=== PATIENT | female | born 1980 | race African-American/Black ===

== ENCOUNTER 2017-01-22 12:40 | Emergency (ER) | payer MEDICAID, OTHER ==
[~2017-01-22 12:40] MED LIST: PREN0.01
[2017-01-22] MEDS ORDERED: ACETAMINOPHEN 325 MG TAB PO ONE (14:15)
[2017-01-22 14:21] LABS: BACTERIA, URINE RARE /hpf; BLOOD, URINE SMALL (NEG); GLUCOSE,URINE NEG (NEG); KETONE, URINE NEG (NEG); MUCUS URINE FEW /lpf (OCC); NITRITE,URINE NEG (NEG); PH, URINE 6.5 (5.0-8.5); SQUAMOUS EPITHELIAL CELL URINE 8 /hpf (0-5); URINE COLOR YELLOW (YELLW/STRAW)
[2017-01-22 14:25] LABS: COMMENT (UR) CULT NOT INDICATED; CULTURE IF INDICATED CULT NOT INDICATED
--- NOTE | 2017-01-22 14:27 | PD ---
HPI Chief Complaint abdominal pain, dizziness Date Seen: Jan 22, 2017 Time Seen: 14:08 (Kate Benjamin MD R1) Travel History International Travel<30 Days: No Contact w/Intl Traveler<30Days: No Known Affected Area: No (Kate Benjamin MD R1) History of Present Illness HPI Patient is a 37-year-old at 33 and 0/7 weeks, EDC 03/12/17 based on definitive LMP of 06/05/16 (confirmed by first trimester ultrasound) who presents to the OB ED with abdominal pain and dizziness since this morning. She says that she had a "nervous feeling" shortly upon standing this morning and lower abdominal pain bilaterally which has been constant since. No gush of fluid, vaginal bleeding, obvious contractions, or decreased movement. She does endorse a transient headache this morning with blurry vision. She denies chest pain or shortness of breath. On review of systems she notes no dysuria but has had increased urinary frequency with decreased output. Denies vaginal discharge , last sexual activity 2 weeks ago. Patient receives OB care from Dr. Annette Barrera the [facility]. LMP 01/16. She has not had any, patient's , however, patient is AMA and has been followed by MFM. She has a large uterine fibroid 10.4 cm on US 10/2016. She was supposed to follow up with MFM but lost her insurance; repeat ultrasound in 4 weeks was indicated at that time. Patient had bedside ultrasound on 01/15/17 showing cephalic presentation and anterior placenta. Additional history, patient does state she has had increased caffeine intake and some constipation symptoms over the last few days. She did have an episode of vomiting on Saturday, not repeated since. She notes some anxiety type symptoms in the past, especially in previous , but does not have a formal diagnosis of anxiety or other mood disorder. (Kate Benjamin MD R1) History Past Medical History Narrative Medical Uterine fibroid (Kate Benjamin MD R1) Obstetric History Obstetric History (one miscarriage, one ) 2 term deliveries History of hemorrhage following vaginal delivery Official ultrasound on 10/09/16 with MFM due to AMA and APA (FOB 60 years old): Showed single fetus with breech presentation, low-lying placenta 30 mm from os, cardiogenic focus in RV, large anterior right lateral fibroid measuring 9.67.6 10.47cm. Patient has had issues with insurance this and did not follow-up with M after visit in October Bedside ultrasound showing cephalic and anterior placenta labs within normal limits, no sickle cell disease No history of high blood pressure this or prior to (Kate Benjamin MD R1) Past Surgical History Surgical History: No Previous Surgery (Kate Benjamin MD R1) Family History Family History: Negative (Kate Benjamin MD R1) Social History Alcohol Use: No Tobacco Use: No Substance Abuse: No (Kate Benjamin MD R1) Allergies-Medications (Allergen,Severity, Reaction): Coded Allergies: No Known Allergies (Unverified , 01/15/17) Home Meds Reported Medications Vit W/ Ferrous Fumara ( Plus 27-1 mg)1 Tab Tab 10/02/16 Review of Systems Except as stated in HPI: all other systems reviewed are Neg (Kate Benjamin MD R1) Physical Exam Temperature 98.8 F, BP 108/67, pulse 87, respirations 20 Narrative GENERAL: Well-nourished, well-developed female, looks slightly uncomfortable. SKIN: Warm and dry. No rashes. HEAD: Normocephalic and atraumatic. EYES: No scleral icterus. No injection or drainage. ENT: No nasal drainage noted. Mucous membranes pink. Airway patent. NECK: Supple, trachea midline. No JVD. CARDIOVASCULAR: Regular rate and rhythm without murmurs, gallops, or rubs. RESPIRATORY: Breath sounds equal bilaterally. Lungs clear without wheezes or crackles. No accessory muscle use. ABDOMEN/GI: Abdomen gravid to >30 weeks, non-tender, bowel sounds present, no rebound, no guarding GENITOURINARY: External Genitalia: intact and normal in appearance Cervix: Posterior, thick, no erythema or lesions. There is moderate amount of white discharge coming from cervical os. Dilatation: 0 Effacement: 0% Station: High Presentation: unknown Membranes: No evidence of rupture Uterine Contractions: Irregular, approximately every 10 min FHT's: Category: 1 Baseline: 150 Reactive: yes Variability: Moderate Decels: few early decelerations EXTREMITIES: No cyanosis or edema. Pulses 2+ in UE/LE bilaterally BACK: Nontender without obvious deformity. No CVA tenderness. NEUROLOGICAL: Awake and alert. Motor and sensory grossly within normal limits. Five out of 5 muscle strength in all muscle groups. Normal speech. (Kate Benjamin MD R1) Narrative RECTAL scant amount hard stool high in vault, nothing to disimpact at this time. No blood on glove. (Paola Caputo MD) Data Data Vital Signs Reviewed: Yes Orders Vital Signs (Adult) .ON ADMISSION (01/22/17 13:55) ^ Labor Status (01/22/17 13:55) Urinalysis - C+S If Indicated (01/22/17 13:55) ^ Hydration (01/22/17 13:55) Fibronectin (01/22/17 13:55) Wet Prep Profile (01/22/17 13:55) (Kate Benjamin MD R1) MDM Medical Record Reviewed: Yes Narrative Course / MDM 3 37-year-old presenting to the OB ED with abdominal pain and now resolved dizziness. Clinical exam and vital signs are within normal limits, aside from vaginal discharge. Differential diagnoses includes UTI, dehydration, vaginal infection, early labor. Plan 1. Rule out labor: fibronectin, monitoring, toco. Cervix shows no evidence of change and is 0cm dilated. Will monitor. If there is evidence of labor, we will need to commence steroids and tocolysis. 2. Dizziness: Possibly due to dehydration. Will offer by mouth hydration and encourage increased intake. UA pending. 3. Possible UTI/infection: Wet prep, UA pending 4. History of fibroid: Patient was due for repeat ultrasound in November, will order now to assess fibroid size and positioning, monitor JARRET and status Update: Patient's UA overall within normal limits. Wet prep negative. Fibronectin negative. Preliminary ultrasound results showing growth at 35th percentile, normal JARRET, anterior placenta, no obvious fibroid. [place] showing contractions more spaced out after hydration and 50 mg dose of Vistaril. Patient continues to have a category 1 tracing. Patient counseled on dietary changes to reduce constipation symptoms noted in history, including incorporating increased fiber intake and water. Received 1 dose of Colace in the ED and was counseled to use stool softeners at home. Plan: Patient to be discharged. She will follow-up with Dr. Annette Barrera next week, can discuss possible mood symptoms and constipation at that time. Patient was seen with Dr. Chandra Damian. Patient was discussed with Dr. Paola Caputo. (Kate Benjamin MD R1) Medical Record Reviewed: Yes Attending Attestation Pt seen and examined, H&P corroborated w/ pt and record reviewed. ROS additionally + for frequent hard small stools over past month, corresponding w/ diminished appetite. Prior BMs softer, 1x daily and larger volume. Pt tolerating PO today, but did have nonbilious emesis 2 days ago after drinking hot tea. (+caffeinated). At this time pt has had US (reassuring growth, JARRET 10, cervix 3.5cm, report pending), wet prep and UA neg, FFN neg. Pt likely has constipation. Counseled in initial use of stool softener (1-2days), 1st dose now prior to departure, increased free water and fruit/ veggie intake daily. Avoid caffeine (hx probable anxiety/"nervous") and discuss episodes w/ PCP at [facility] next week. See the residents documentation for details. I agree w/ resident assessment and plan as documented in this note. (Paola Caputo MD) Diagnosis Diagnosis: Primary Impression: Dehydration Additional Impressions: Constipation not in labor with 33 completed weeks gestation Disposition: 01 DISCHARGE HOME Condition: Stable Patient Instructions: General Instructions, Early Labor Signs (ED), Diet (GEN) Kate Benjamin MD R1 Jan 22, 2017 14:27 Paola Caputo MD Jan 22, 2017 15:35
[2017-01-22] MEDS ORDERED: DOCUSATE SODIUM 100 MG CAP PO ONE (15:45)
== END 2017-01-22 17:12 | disposition home or self-care (01) ==
LOC: HOBED 12:40
DX: O26.893 Other specified pregnancy related conditions, third trimester (principal); E86.0 Dehydration; K59.00 Constipation, unspecified; R42 Dizziness and giddiness; R10.30 Lower abdominal pain, unspecified; R51 Headache; H53.8 Other visual disturbances
CPT/HCPCS: 59025; 76816; 76817; 81001; 82731; 87210

== ENCOUNTER 2017-03-06 15:31 | Emergency (ER) | payer MEDICAID ==
--- NOTE | 2017-03-06 16:00 | PD ---
HPI Chief Complaint Cervical dilation Date Seen: Mar 06, 2017 Travel History International Travel<30 Days: No Contact w/Intl Traveler<30Days: No Known Affected Area: No History of Present Illness HPI Patient is a (1 miscarriage, 1 ) at 39/1 weeks gestation with HARRISON 03/12/17 based on definitive LMP of 06/05/16 (and confirmed by first trimester U/S) that presents to the [facility] ED after being sent here by her PCP and OB provider Dr. Leesa Driver due to a dilated cervix of 4-5 cm. Considering that the patient does not have reliable transportation, Dr. Driver would like her to be checked for contractions before sending her home. The patient was at the [facility] clinic for her routine OB exam. She does not have any complaints today. She denies contractions, vaginal bleeding or abnormal vaginal discharge, loss of fluid. She endorses positive movement. Notably, she is GBS negative. Para: 2 : 5 Miscarriage: 1 : 1 History Past Medical History Medical History: Denies Significant Hx Obstetric History Obstetric History (1 miscarriage, 1 ) Past Surgical History Surgical History: No Previous Surgery Family History Family History: Negative Social History Alcohol Use: No Tobacco Use: No Substance Abuse: No Allergies-Medications (Allergen,Severity, Reaction): Coded Allergies: No Known Allergies (Unverified , 03/06/17) Home Meds Reported Medications Vit W/ Ferrous Fumara ( Plus 27-1 mg)1 Tab Tab 10/02/16 Review of Systems General / Constitutional: No: Fever, Chills Eyes: No: Visual changes HENT: No: Headaches Cardiovascular: No: Chest Pain or Discomfort Respiratory: No: Cough, Short of Breath Gastrointestinal: No: Nausea, Vomiting Genitourinary: No: Discharge, Vaginal Bleeding Physical Exam Narrative GENERAL: Well-nourished, well-developed patient. SKIN: Warm and dry. HEAD: Normocephalic and atraumatic. EYES: No scleral icterus. No injection or drainage. ENT: No nasal drainage noted. Mucous membranes pink. Airway patent. NECK: Supple, trachea midline. No JVD. CARDIOVASCULAR: Regular rate and rhythm without murmurs, gallops, or rubs. RESPIRATORY: Breath sounds equal bilaterally. No accessory muscle use. BREASTS: Bilateral exam showed no masses , no retractions, no nipple discharge. ABDOMEN/GI: Abdomen soft, non-tender, bowel sounds present, no rebound, no guarding Gravid to 39 weeks size Fundal Height: 39 cm GENITOURINARY: External Genitalia: intact and normal in appearance Cervix: Mid-position Dilatation: 5cm Effacement: 80% Station: -2 Presentation: cephalic Membranes: Intact Uterine Contractions: None FHT's: Category: 1 Baseline: 140 Reactive: up to 170 Variability: moderate Decels: none EXTREMITIES: No cyanosis or edema. BACK: Nontender without obvious deformity. No CVA tenderness. NEUROLOGICAL: Awake and alert. Motor and sensory grossly within normal limits. Five out of 5 muscle strength in all muscle groups. Normal speech. Data Data Vital Signs Reviewed: Yes MDM Medical Record Reviewed: Yes Narrative Course / MDM 36-year-old female at 39/1 weeks gestation referred to the OB ED by her OB provider due to cervical dilation to 4-5 cm -Intrauterine full-term , category I tracing, reassuring - tachycardia with baseline rate in 170s, resolved to baseline 140 -Few low amplitude contractions present on monitor -Will discharge home -Pt knows to report to the ED if her water breaks or she develops contractions Diagnosis Diagnosis: Primary Impression: False labor after 37 completed weeks of gestation Disposition: DISCHARGE HOME Condition: Stable Eko,Parisa Johnson MD R1 Mar 06, 2017 16:00
== END 2017-03-06 17:28 | disposition home or self-care (01) ==
LOC: HOBED 15:31
DX: O47.1 False labor at or after 37 completed weeks of gestation (principal); Z3A.39 39 weeks gestation of pregnancy
CPT/HCPCS: 99284

== ENCOUNTER 2017-03-08 02:35 | Inpatient (IN) | payer MEDICAID ==
[2017-03-08] VITALS (52 sets, daily range): BP systolic 88–136; BP diastolic 44–101; PULSE 74–111; RESP 16–20; TEMP 97.6–98; O2SAT 96–100
[~2017-03-08] VITALS: Ht 154.9 cm; Wt 90.3 kg
[2017-03-08] MEDS ORDERED: LACTATED RINGER'S 1000 ML INJ 1,000 ML IV PRN (03:03)
[2017-03-08] MEDS: LACTATED RINGER'S 1000 ML INJ 1,000 ML IV SCH ×3 (03:05→06:55)
--- NOTE | 2017-03-08 03:10 | PD ---
HPI Chief Complaint contractions Date Seen: Mar 08, 2017 Time Seen: 03:00 (Chandra Damian MD R2) Travel History International Travel<30 Days: No Contact w/Intl Traveler<30Days: No (Chandra Damian MD) History of Present Illness HPI 37 year old at 39/3 weeks gestation with HARRISON of 03/12/17, GBS negative. She's presenting with contractions every 3 minutes. She has no leakage of fluid. She has vaginal spotting. Has good movements. No other symptoms at this time. (Chandra Damian MD R2) History Past Medical History Narrative Medical None (Chandra Damian MD) Obstetric History Obstetric History at 39/3 weeks gestation GBS negative Patient of Dr. Driver (Chandra Damian MD) Past Surgical History Narrative Surgical None (Chandra Damian MD) Family History Narrative Family History None (Chandra Damian MD) Social History Alcohol Use: No Tobacco Use: No Substance Abuse: No (Chandra Damian MD) Allergies-Medications (Allergen,Severity, Reaction): Coded Allergies: No Known Allergies (Unverified , 03/06/17) Home Meds Reported Medications Vit W/ Ferrous Fumara ( Plus 27-1 mg)1 Tab Tab 10/02/16 Review of Systems Except as stated in HPI: all other systems reviewed are Neg (Chandra Damian MD R2) Physical Exam Narrative GENERAL: In pain from labor SKIN: Warm and dry. HEAD: Normocephalic and atraumatic. EYES: No scleral icterus. No injection or drainage. ENT: No nasal drainage noted. Mucous membranes pink. Airway patent. NECK: Supple, trachea midline. No JVD. CARDIOVASCULAR: Regular rate and rhythm without murmurs, gallops, or rubs. RESPIRATORY: Breath sounds equal bilaterally. No accessory muscle use. BREASTS: Bilateral exam showed no masses , no retractions, no nipple discharge. ABDOMEN/GI: Abdomen soft, non-tender, bowel sounds present, no rebound, no guarding Gravid to 39 weeks size GENITOURINARY: Dilatation: 5 Effacement: 100 Station: -2 Presentation: vertex Membranes: intact, bulging Uterine Contractions: q2-3mins FHT's: Category: 1 Baseline: 150's Reactive: yes Variability: moderate Decels: none EXTREMITIES: No cyanosis or edema. BACK: Nontender without obvious deformity. No CVA tenderness. NEUROLOGICAL: Awake and alert. Motor and sensory grossly within normal limits. (Chandra Damian MD R2) Data Data Vital Signs Reviewed: Yes Orders Ob (2e) Additional Admit Info (03/08/17 03:05) Admit To Inpatient (03/08/17 ) Code Status (03/08/17 03:03) Vital Signs (Adult) .Per protocol (03/08/17 03:03) Activity Oob Ad Cecilia (03/08/17 03:03) Heart (03/08/17 03:03) Amnioinfusion (03/08/17 03:03) Urinary Catheter Management .ONCE (03/08/17 03:03) Diet Npo (03/08/17 Breakfast) Lactated Ringer's 1000 Ml Inj (Lr 1000 M (03/08/17 03:03) Lactated Ringer's 1000 Ml Inj (Lr 1000 M (03/08/17 03:03) Sodium Chlorid 0.9% 500 Ml Inj (Ns 500 M (03/08/17 03:15) Sodium Chlor 0.9% 1000 Ml Inj (Ns 1000 M (03/08/17 03:23) Lidocaine 1% Inj (50 Ml) (Xylocaine 1% I (03/08/17 03:15) Citric Acid-Sodium Citrate Liq (Bicitra (03/08/17 03:15) Ondansetron Inj (Zofran Inj) (03/08/17 03:15) Fentanyl Inj (Fentanyl Inj) (03/08/17 03:15) Fentanyl Inj (Fentanyl Inj) (03/08/17 03:15) Complete Blood Count With Diff (03/08/17 03:03) Hold Clot (03/08/17 03:03) Abo/Rh Blood Type (03/08/17 03:03) Urinalysis - C+S If Indicated (03/08/17 03:03) Resp Oxygen Non Rebreathe Mask (03/08/17 ) ^ Epidural / Intrathecal Infus (03/08/17 03:03) Oxytocin 30 Units-500ml Premix (Pitocin (03/08/17 03:15) Lidocaine 1% Inj (50 Ml) (Xylocaine 1% I (03/08/17 03:15) Light Mineral Oil (Muri-Lube Oil) (03/08/17 03:15) Inpatient Certification (03/08/17 ) (Chandra Damian MD R2) [facility] Medical Record Reviewed: Yes Interpretation(s) 37 year old female presenting with contractions. Category 1 tracing. Contractions every 2 to 3 mins on monitor. 5/100/-2 with bulging bag on cervical exam. - Admit to labor and delivery - External monitoring - Pain management - GBS negative - labs reviewed, unremarkable - Anticipate vaginal delivery (Chandra Damian MD R2) Collaborating MD Comments Agree with present management plan. Active labor, anticipate . (Lazara Garcia MD) Chandra Damian MD R2 Mar 08, 2017 03:10 Lazara Garcia MD Mar 08, 2017 08:13
--- NOTE | 2017-03-08 03:13 | HHI.HP ---
History & Physical H&P [facility] OB ED Note (Detail) Patient Name: Hannah Jett Unit Number: [id number] Date of : 1980 Patient Status: Registered Emergency Room Attending Doctor: Lazara Garcia MD HPI HPI Chief Complaint contractions Date Seen: Mar 08, 2017 Time Seen: 03:00 Travel History International Travel<30 Days: No Contact w/Intl Traveler<30Days: No History of Present Illness HPI 37 year old at 39/3 weeks gestation with HARRISON of 03/12/17, GBS negative. She's presenting with contractions every 3 minutes. She has no leakage of fluid. She has vaginal spotting. Has good movements. No other symptoms at this time. History (Limited) History Past Medical History Narrative Medical None Obstetric History Obstetric History at 39/3 weeks gestation GBS negative Patient of Dr. Driver Past Surgical History Narrative Surgical None Family History Narrative Family History None Social History Alcohol Use: No Tobacco Use: No Substance Abuse: No Allergies-Medications Allergies-Medications (Allergen,Severity, Reaction): Coded Allergies: No Known Allergies (Unverified , 03/06/17) Home Meds Reported Medications Vit W/ Ferrous Fumara ( Plus 27-1 mg)1 Tab Tab 10/02/16 ROS Review of Systems Except as stated in HPI: all other systems reviewed are Neg Physical Exam Physical Exam Narrative GENERAL: In pain from labor SKIN: Warm and dry. HEAD: Normocephalic and atraumatic. EYES: No scleral icterus. No injection or drainage. ENT: No nasal drainage noted. Mucous membranes pink. Airway patent. NECK: Supple, trachea midline. No JVD. CARDIOVASCULAR: Regular rate and rhythm without murmurs, gallops, or rubs. RESPIRATORY: Breath sounds equal bilaterally. No accessory muscle use. BREASTS: Bilateral exam showed no masses , no retractions, no nipple discharge. ABDOMEN/GI: Abdomen soft, non-tender, bowel sounds present, no rebound, no guarding Gravid to 39 weeks size GENITOURINARY: Dilatation: 5 Effacement: 100 Station: -2 Presentation: vertex Membranes: intact, bulging Uterine Contractions: q2-3mins FHT's: Category: 1 Baseline: 150's Reactive: yes Variability: moderate Decels: none EXTREMITIES: No cyanosis or edema. BACK: Nontender without obvious deformity. No CVA tenderness. NEUROLOGICAL: Awake and alert. Motor and sensory grossly within normal limits. Data Data Data Vital Signs Reviewed: Yes Orders Ob (2e) Additional Admit Info (03/08/17 03:05) Admit To Inpatient (03/08/17 ) Code Status (03/08/17 03:03) Vital Signs (Adult) .Per protocol (03/08/17 03:03) Activity Oob Ad Cecilia (03/08/17 03:03) Heart (03/08/17 03:03) Amnioinfusion (03/08/17 03:03) Urinary Catheter Management .ONCE (03/08/17 03:03) Diet Npo (03/08/17 Breakfast) Lactated Ringer's 1000 Ml Inj (Lr 1000 M (03/08/17 03:03) Lactated Ringer's 1000 Ml Inj (Lr 1000 M (03/08/17 03:03) Sodium Chlorid 0.9% 500 Ml Inj (Ns 500 M (03/08/17 03:15) Sodium Chlor 0.9% 1000 Ml Inj (Ns 1000 M (03/08/17 03:23) Lidocaine 1% Inj (50 Ml) (Xylocaine 1% I (03/08/17 03:15) Citric Acid-Sodium Citrate Liq (Bicitra (03/08/17 03:15) Ondansetron Inj (Zofran Inj) (03/08/17 03:15) Fentanyl Inj (Fentanyl Inj) (03/08/17 03:15) Fentanyl Inj (Fentanyl Inj) (03/08/17 03:15) Complete Blood Count With Diff (03/08/17 03:03) Hold Clot (03/08/17 03:03) Abo/Rh Blood Type (03/08/17 03:03) Urinalysis - C+S If Indicated (03/08/17 03:03) Resp Oxygen Non Rebreathe Mask (03/08/17 ) ^ Epidural / Intrathecal Infus (03/08/17 03:03) Oxytocin 30 Units-500ml Premix (Pitocin (03/08/17 03:15) Lidocaine 1% Inj (50 Ml) (Xylocaine 1% I (03/08/17 03:15) Light Mineral Oil (Muri-Lube Oil) (03/08/17 03:15) Inpatient Certification (03/08/17 ) MDM MDM Medical Record Reviewed: Yes Interpretation(s) 37 year old female presenting with contractions. Category 1 tracing. Contractions every 2 to 3 mins on monitor. 5/100/-2 with bulging bag on cervical exam. - Admit to labor and delivery - External monitoring - Pain management - GBS negative - labs reviewed, unremarkable - Anticipate vaginal delivery Discussed with Chandra Lubin MD R2 Mar 08, 2017 03:13
[2017-03-08] MEDS ORDERED: ONDANSETRON HCL 4 MG/2 ML VIAL IV PRN (03:15)
[2017-03-08] MEDS ORDERED: MINERAL OIL 10 ML VIAL TOPICAL PRN (03:15)
[2017-03-08] MEDS ORDERED: OXYTOCIN 30 UNITS-500ML PREMIX 500 ML IV ONE (03:15)
[2017-03-08] MEDS ORDERED: CITRIC ACID-SODIUM CITRATE LIQ 30 ML UDC PO SCH (03:15)
[2017-03-08] MEDS ORDERED: SODIUM CHLORID 0.9% 500 ML INJ 500 ML IV PRN (03:15)
[2017-03-08] MEDS ORDERED: LIDOCAINE HCL 1% 50 ML VIAL INFIL PRN (03:15)
[2017-03-08] MEDS ORDERED: LIDOCAINE HCL 1% 50 ML VIAL I-DERMAL PRN (03:15)
[2017-03-08] MEDS ORDERED: SODIUM CHLOR 0.9% 1000 ML INJ 1,000 ML IV PRN (03:23)
[2017-03-08 03:41] LABS: AUTOMATED NEUTROPHIL # 14.4 TH/MM3 (1.8-7.7); BASOPHIL # 0.1 TH/MM3 (0-0.2); BASOPHIL % 0.7 % (0.0-2.0); EOSINOPHIL # 0.2 TH/MM3 (0-0.4); EOSINOPHIL % 0.8 % (0.0-4.0); HEMATOCRIT 37.6 % (35.0-46.0); LYMPH % 14.4 % (9.0-44.0); LYMPHOCYTE # 2.7 TH/MM3 (1.0-4.8); MEAN CORPUSCULAR HEMOGLOBIN 28.1 PG (27.0-34.0); MONO % 7.6 % (0.0-8.0); NEUT % 76.5 % (16.0-70.0); PLATELET COUNT 292 TH/MM3 (150-450); RED BLOOD COUNT 4.42 MIL/MM3 (4.00-5.30); RED CELL DISTRIBUTION WIDTH 14.6 % (11.6-17.2); WHITE BLOOD COUNT 18.8 TH/MM3 (4.0-11.0)
[2017-03-08 03:44] LABS: HEMO FLAGS AUTO DIFF
[2017-03-08] MEDS ORDERED: fentaNYL 2MCG-BUPIV 0.125% INJ 100 ML ONE (03:44)
[2017-03-08 04:31] LABS: EOSINOPHILS 2 % (0-4); MYELOCYTES 3 % (0-0); POLYS (SEG NEUTROPHILS) 66 % (16-70); SCAN/DIFF FINAL DIFF MANUAL; WBC DIFF SAMPLE 100
[2017-03-08 04:33] LABS: PLATELET ESTIMATE SMEAR NORMAL (NORMAL); PLATELET MORPHOLOGY NORMAL (NORMAL)
[2017-03-08] MEDS ORDERED: fentaNYL 2MCG-BUPIV 0.125% 100 ML EPIDURAL SCH (04:45)
[2017-03-08] MEDS ORDERED: NO SYSTEM NARCOTICS PRN (04:45)
[2017-03-08] MEDS ORDERED: DO NOT ADMINISTER ANTICOAGULANTS PRN (04:45)
[2017-03-08] MEDS ORDERED: ePHEDrine/NS 25 MG/5 ML SYR IV PRN (04:45)
--- NOTE | 2017-03-08 06:52 | PD.LABORPN ---
Subjective Subjective Patient resting comfortably in bed with epidural in place. Objective Vital Signs Vital Signs Date Time Temp Pulse Resp B/P Pulse Ox O2 Delivery O2 Flow Rate FiO2 03/08/17 06:45 100 97 03/08/17 06:30 98 96 03/08/17 06:15 108/48 03/08/17 06:15 18 03/08/17 06:10 96 97 03/08/17 06:05 92 99 03/08/17 06:00 103 115/50 98 03/08/17 06:00 81 03/08/17 06:00 18 03/08/17 05:50 100 03/08/17 05:45 97 03/08/17 05:45 87 92/49 03/08/17 05:39 97.6 16 03/08/17 05:37 93 108/51 03/08/17 05:35 88 03/08/17 05:30 96 03/08/17 05:30 100 16 97/44 03/08/17 05:25 91 03/08/17 05:20 90 03/08/17 05:15 94 03/08/17 05:15 94 110/64 03/08/17 05:15 16 03/08/17 05:00 94 03/08/17 05:00 95 108/63 03/08/17 04:55 94 03/08/17 04:50 97 03/08/17 04:48 16 03/08/17 04:45 98 120/68 03/08/17 04:45 95 03/08/17 04:45 16 03/08/17 04:40 97 03/08/17 04:40 100 122/72 03/08/17 04:35 95 123/64 03/08/17 04:35 87 03/08/17 04:30 18 03/08/17 04:30 92 03/08/17 04:30 92 121/70 03/08/17 04:25 96 110/57 03/08/17 04:25 95 03/08/17 04:20 102 03/08/17 04:20 94 112/56 03/08/17 04:15 18 03/08/17 04:15 100 116/69 03/08/17 04:15 94 03/08/17 04:11 93 117/64 03/08/17 04:10 98 03/08/17 04:07 95 134/71 03/08/17 04:05 93 03/08/17 04:00 18 03/08/17 04:00 97.8 03/08/17 03:54 100 136/70 03/08/17 03:50 102 03/08/17 03:43 18 Objective Pelvic Exam: Cervix: midposition Dilatation: 9 Effacement: 100 Station: -1 Presentation: vertex Membranes: intact Uterine Contractions: q2-3min FHT's: Category: I Baseline: 140 Reactive: + Variability: moderate Decels: none Assessment/Plan Assessment and Plan 37 year old at 39-3/7 weeks gestation - Category 1 tracing, reassuring. Continue routine obstetric care. - Labor progressing with cervical change. - External monitoring/toco - Epidural - GBS negative - Anticipate vaginal delivery Raquel Gutiérrez MD R2 Mar 08, 2017 06:52
--- NOTE | 2017-03-08 07:42 | PD.OB.DELI ---
Delivery Date: Mar 08, 2017 Anesthesia: Epidural Episiotomy: None Vaginal Delivery: Normal Presentation: Occiput anterior Nuchal Cord: None Delayed cord clamping (45 sec): Yes : Male One Minute : 8 Five Minute : 9 Weight: 3065g Placenta: Spontaneous delivery, Intact, 3 vessel cord Laceration: No lacerations Additional Information Vaginal delivery of infant Sam. EBL 250cc. Supervised by Dr. Quiroz. (Raquel Driver MD R2) Additional Information Attending note: I was present and supervised entire delivery of and placenta. (Beronica Quiroz MD) Raquel Driver MD R2 Mar 08, 2017 07:42 Beronica Quiroz MD Mar 08, 2017 13:50
[2017-03-08] MEDS ORDERED: DOCUSATE SODIUM 50 MG/SENNA 8.6 MG TAB PO PRN (07:45)
[2017-03-08] MEDS ORDERED: ONDANSETRON ODT 4 MG TAB PO PRN (07:45)
[2017-03-08] MEDS ORDERED: ALUMINUM/MAGNESIUM/SIMETH 30 ML CUP PO PRN (07:45)
[2017-03-08] MEDS ORDERED: SODIUM CHLORIDE 0.9% FLUSH 10 ML FLUSH IV FLUSH PRN (07:45)
[2017-03-08] MEDS ORDERED: BENZOCAINE 20% TOPICAL SPRAY 60 ML CAN TOPICAL PRN (07:45)
[2017-03-08] MEDS ORDERED: oxyCODONE/ACETAMINOPHEN 5 MG/325 MG TAB PO PRN ×2 (07:45)
[2017-03-08] MEDS ORDERED: ZOLPIDEM TARTRATE 5 MG TAB PO PRN (07:45)
[2017-03-08] MEDS ORDERED: WITCH HAZEL 50%/GLYCERIN 12.5% 40 PAD JAR TOPICAL PRN (07:45)
[2017-03-08] MEDS ORDERED: SODIUM CHLORIDE 0.9% FLUSH 10 ML FLUSH IV FLUSH SCH (09:00)
[2017-03-08] MEDS ORDERED: MEASLES, MUMPS, RUBELLA VACCINE 0.5 ML VIAL SQ ONE (16:00)
[2017-03-08] MEDS ORDERED: DIPHTH/TETANUS/ACEL PERTUSSIS (BOOSTER) 0.5 ML VIAL/PFS IM ONE (16:00)
[2017-03-08] MEDS: ACETAMINOPHEN 325 MG TAB PO PRN (20:06)
[2017-03-08] MEDS: IBUPROFEN 600 MG TAB PO PRN (20:06)
[2017-03-08] MEDS ORDERED: AMMONIA AROMATIC INHALANT 0.33 ML ONE (21:59)
[2017-03-09] MEDS: IBUPROFEN 600 MG TAB PO PRN ×3 (02:04→16:10)
[2017-03-09] MEDS: ACETAMINOPHEN 325 MG TAB PO PRN ×3 (02:05→16:10)
--- NOTE | 2017-03-09 07:25 | HHI.OB ---
Subjective Remarks day # 1. AFVSS overnight. Decreased lochia. Denies dysuria. No breast tenderness. She is feeding the baby via breast and supplementing with formula due to concern that her breasts are not yet producing enough. Appetite good. No nausea or vomiting. Positive flatus/bowel movement. Ambulating well. Denies calf pain or shortness of breath. Otherwise, she is doing well this morning and has no other complaints. Objective Vitals/I&O Vital Signs Date Time Temp Pulse Resp B/P Pulse Ox O2 Delivery O2 Flow Rate FiO2 03/08/17 10:05 98.0 95 16 115/64 03/08/17 09:15 100 119/68 03/08/17 09:15 20 03/08/17 09:00 74 119/101 03/08/17 08:45 96 118/56 03/08/17 08:30 101 115/61 03/08/17 08:30 97.7 20 03/08/17 08:16 105 124/60 03/08/17 08:15 20 03/08/17 08:00 101 20 116/73 03/08/17 07:45 103 124/64 03/08/17 07:40 20 03/08/17 07:32 111 123/63 Objective Remarks GENERAL: Well-nourished, well-developed patient. CARDIOVASCULAR: Regular rate and rhythm without murmurs, gallops, or rubs. RESPIRATORY: Breath sounds equal bilaterally. No accessory muscle use. ABDOMEN/GI: Abdomen soft, non-tender. Fundus: Firm, non-tender at umbilicus. GENITOURINARY: Light to moderate bleeding. EXTREMITIES: No cyanosis or edema, non-tender, without signs of DVT. Medications and IVs Current Medications Medications (Trade) Dose Ordered Sig/Karolyn Route Start Time Stop Time Status Last Admin (NS Flush) 2 ml BID IV FLUSH 03/08/17 09:00 03/08/17 20:06 (NS Flush) 2 ml UNSCH PRN IV FLUSH 03/08/17 07:45 (Tylenol) 650 mg Q4H PRN PO 03/08/17 07:45 03/09/17 02:05 (Motrin) 600 mg Q6H PRN PO 03/08/17 07:45 03/09/17 02:04 (Percocet 5-325 Mg) 1 tab Q4H PRN PO 03/08/17 07:45 (Percocet 5-325 Mg) 2 tab Q4H PRN PO 03/08/17 07:45 (Americaine 20% Top Spr) 1 spray Q4H PRN TOPICAL 03/08/17 07:45 (Tucks Pads) 1 applic QID PRN TOPICAL 03/08/17 07:45 (Roslyn-Colace) 2 tab Q12H PRN PO 03/08/17 07:45 03/08/17 20:06 (Ambien) 5 mg HS PRN PO 03/08/17 07:45 (Mag-Al Plus Susp Liq) 15 ml Q8H PRN PO 03/08/17 07:45 (Zofran Odt) 4 mg Q6H PRN PO 03/08/17 07:45 Assessment/Plan Assessment and Plan 37 y/o female who is PPD# 1 s/p . -Continue routine care. -Percocet and Motrin PRN pain. -Encouraged OOB. Advised pelvic rest for 6 wks. -Re: ctrl, she would like a tubal ligation. She plans to abstain from intercourse until tubal ligation. -Anticipate discharge home today. Raquel Wilburn Dr., MD R2 Mar 09, 2017 07:24
[2017-03-09] MEDS ORDERED: IBUP-232 PO (07:27)
[2017-03-09] MEDS ORDERED: SENN1TAB PO (07:27)
--- NOTE | 2017-03-09 07:27 | HHI.DCPOC ---
Discharge Care Plan Diagnosis: (1) (spontaneous vaginal delivery) Report Symptoms to Your Doctor -Temperate above 100.5 degrees -Redness, of incision or excessive or foul smelling drainage -Unusual pain or calf pain -Increased vaginal bleeding -Painful or difficulty urinating -Feelings of extreme sadness or anxiety after 2 weeks Goals to Promote Your Health * To prevent worsening of your condition and complications * To maintain your health at the optimal level Directions to Meet Your Goals Take your medications as prescribed Follow your dietary instruction Follow activity as directed Ensure plenty of rest for recovery Drink fluids for hydration Keep your appointments as scheduled Take your immunizations and boosters as scheduled If your symptoms worsen call your PCP, if no PCP go to Urgent Care Center or Emergency Room Smoking is Dangerous to Your Health. Avoid second hand smoke Call the 24-hour crisis hotline for domestic abuse at Raquel Driver MD R2 Mar 09, 2017 07:27
== END 2017-03-09 18:28 | disposition home or self-care (01) | DRG 775 ==
LOC: HOBED 02:35 → H2EB 03:05 → H1EA 10:08
PROVIDERS: ADMIT Obstetrics & Gynecology Obstetrics; ATTEND Obstetrics & Gynecology Obstetrics
PROC: 10E0XZZ Delivery of Products of Conception, External Approach (ICD-10-PCS; principal; 2017-03-08)
PROC: 3E0S3CZ (ICD-10-PCS; 2017-03-08)
PROC: 00HU33Z Insertion of Infusion Device into Spinal Canal, Percutaneous Approach (ICD-10-PCS; 2017-03-08)
DX: O26.899 Other specified pregnancy related conditions, unspecified trimester (principal); O09.523 Supervision of elderly multigravida, third trimester; Z37.0 Single live birth; Z3A.39 39 weeks gestation of pregnancy
CPT/HCPCS: 59025; 85007; 85027; 86900; 86901; 90715; 99285; J3010; J7120

== ENCOUNTER 2017-10-14 04:26 | Observation (INO) | payer MEDICAID ==
[2017-10-14] VITALS (8 sets, daily range): BP systolic 103–146; BP diastolic 58–93; PULSE 62–82; RESP 15–24; TEMP 97.5–98.4; O2SAT 96–100
[~2017-10-14] VITALS: Ht 154.9 cm; Wt 75.0 kg
[~2017-10-14 04:26] MED LIST changes: +IBUP-232 PO; +SENN1TAB PO
[2017-10-14] MEDS ORDERED: SODIUM CHLORIDE 0.9% FLUSH 10 ML FLUSH IV FLUSH PRN ×2 (05:30→11:15)
[2017-10-14] MEDS ORDERED: ONDANSETRON HCL 4 MG/2 ML VIAL IV PUSH ONE (05:30)
[2017-10-14] MEDS ORDERED: MORPHINE SULFATE 4 MG/ML INJ IV PUSH ONE (05:30)
[2017-10-14] MEDS ORDERED: KETOROLAC TROMETHAMINE 30 MG/ML (IVP) VIAL IV PUSH ONE (05:45)
--- NOTE | 2017-10-14 06:09 | PD ---
HPI Chief Complaint: Abdominal Pain Time Seen by Provider: 05:17 Travel History International Travel<30 days: No Contact w/Intl Traveler<30days: No Traveled to known affect area: No History of Present Illness HPI 37-year-old female presents to the emergency department for complaint of severe lower abdominal pain. Patient states she is presently menstruating. Patient states last period prior to this and was September 15 and irregular. Patient states she ran out of her control pills 2 weeks ago. Patient remained sexually active. Patient does not believe she is . Patient states that she does have history of uterine fibroids and painful menses. Patient denies fever or chills. Patient denies upper abdominal pain. There is been no vomiting. Patient denies dysuria frequency urgency. There is been no diarrhea. Symptoms of an progressive worsening over the last 12 hours. Patient has marked pain of attempted ambulation. Pain radiates into the lower extremities without any bladder or bowel dysfunction satellite anesthesia or lower extremity numbness tingling or weakness. Patient denies any low back pain. Patient denies any known injury or fall. The patient rates her pain as 10 over 10 intensity. Patient states ibuprofen has provided no symptom relief and palpation and ambulation increased pain. PFSH Past Medical History Narrative Medical Uterine fibroids no tobacco use; nursing notes reviewed Hx Anticoagulant Therapy: No Cardiovascular Problems: No Chemotherapy: No Cerebrovascular Accident: No Diabetes: No Genitourinary: Yes (uterine fibroids) Respiratory: No Tetanus Vaccination: < 5 Years ?: Not LMP: 10/13/2017 Past Surgical History Surgical History: No Previous Surgery Social History Alcohol Use: No Tobacco Use: No Substance Use: No Allergies-Medications (Allergen,Severity, Reaction): Coded Allergies: No Known Allergies (Unverified , 03/06/17) Reported Meds & Prescriptions Reported Meds & Active Scripts Active Senna Plus 8.6-50 mg (Sennosides-Docusate Sodium) 1 Tab Tab 2 Tab PO Q12H PRN Ibuprofen 600 Mg Tab 600 Mg PO Q6H PRN Reported Plus 27-1 mg ( Vit W/ Ferrous Fumara) 1 Tab Tab Review of Systems Except as stated in HPI: all other systems reviewed are Neg Physical Exam Narrative GENERAL: Well-developed well-nourished female in obvious discomfort no respiratory distress. SKIN: Warm and dry. HEAD: Normocephalic. EYES: No scleral icterus. No injection or drainage. NECK: Supple, trachea midline. No JVD or lymphadenopathy. CARDIOVASCULAR: Regular rate and rhythm without murmurs, gallops, or rubs. RESPIRATORY: Breath sounds equal bilaterally. No accessory muscle use. GASTROINTESTINAL: Abdomen soft, suprapubic pressure and tenderness to palpation without guarding or rebound, nondistended. Pelvic exam normal external exam no redness induration or lesions; speculum exam small amount of blood in the vaginal vault no clots no tissue cervical os closed; bimanual exam palpable uterine mass irregular consistent with history of uterine fibroids cervical motion tenderness no adnexal mass or tenderness. MUSCULOSKELETAL: No cyanosis, or edema. BACK: Nontender without obvious deformity. No CVA tenderness. Data Data Last Documented VS Vital Signs Date Time Temp Pulse Resp B/P (MAP) Pulse Ox O2 Delivery O2 Flow Rate FiO2 10/14/17 07:43 69 15 140/76 (97) 100 Room Air 10/14/17 04:29 97.5 Orders Orders Complete Blood Count With Diff (10/14/17 05:17) Comprehensive Metabolic Panel (10/14/17 05:17) Lipase (10/14/17 05:17) Urinalysis - C+S If Indicated (10/14/17 05:17) Iv Access Insert/Monitor (10/14/17 05:17) Ecg Monitoring (10/14/17 05:17) Oximetry (10/14/17 05:17) Sodium Chloride 0.9% Flush (Ns Flush) (10/14/17 05:30) Ed Urine Pregnancytest Poc (10/14/17 05:17) Ondansetron Inj (Zofran Inj) (10/14/17 05:30) Morphine Inj (Morphine Inj) (10/14/17 05:30) Ketorolac Inj (Toradol Inj) (10/14/17 05:45) Ct Abd/Pel W Iv Contrast(Rout) (10/14/17 ) Wet Prep Profile (10/14/17 05:45) Gc And Chlamydia Pcr (10/14/17 05:45) Urine Culture (10/14/17 05:40) Ceftriaxone Inj (Rocephin Inj) (10/14/17 06:30) Azithromycin Powd Pack (Zithromax Powd P (10/14/17 06:30) Metronidazole 500 Mg Inj (Flagyl 500 Mg (10/14/17 07:00) Cath For Specimen (10/14/17 07:44) Urinalysis - C+S If Indicated (10/14/17 07:50) Labs Laboratory Tests Test 10/14/17 05:40 10/14/17 05:48 10/14/17 05:55 Urine Color RED Urine Turbidity HAZY Urine pH 6.0 Urine Specific [place] 1.025 Urine Protein 30 mg/dL Urine Glucose (UA) NEG mg/dL Urine Ketones TRACE mg/dL Urine Occult Blood LARGE Urine Nitrite NEG Urine Bilirubin NEG Urine Urobilinogen LESS THAN 2.0 MG/DL Urine Leukocyte Esterase MOD Urine RBC /hpf Urine WBC /hpf Urine Mucus FEW /lpf Microscopic Urinalysis Comment CULTURE INDICATED White Blood Count 12.7 TH/MM3 Red Blood Count 4.59 MIL/MM3 Hemoglobin 13.3 GM/DL Hematocrit 38.3 % Mean Corpuscular Volume 83.5 FL Mean Corpuscular Hemoglobin 29.0 PG Mean Corpuscular Hemoglobin Concent 34.8 % Red Cell Distribution Width 14.3 % Platelet Count 485 TH/MM3 Mean Platelet Volume 8.9 FL Neutrophils (%) (Auto) 64.4 % Lymphocytes (%) (Auto) 21.3 % Monocytes (%) (Auto) 8.6 % Eosinophils (%) (Auto) 4.8 % Basophils (%) (Auto) 0.9 % Neutrophils # (Auto) 8.2 TH/MM3 Lymphocytes # (Auto) 2.7 TH/MM3 Monocytes # (Auto) 1.1 TH/MM3 Eosinophils # (Auto) 0.6 TH/MM3 Basophils # (Auto) 0.1 TH/MM3 CBC Comment DIFF FINAL Differential Comment Blood Urea Nitrogen 15 MG/DL Creatinine 0.66 MG/DL Random Glucose 89 MG/DL Total Protein 8.1 GM/DL Albumin 3.9 GM/DL Calcium Level 9.1 MG/DL Alkaline Phosphatase 95 U/L Aspartate Amino Transf (AST/SGOT) 14 U/L Alanine Aminotransferase (ALT/SGPT) 22 U/L Total Bilirubin 0.3 MG/DL Sodium Level 137 MEQ/L Potassium Level 3.9 MEQ/L Chloride Level 105 MEQ/L Carbon Dioxide Level 20.1 MEQ/L Anion Gap 12 MEQ/L Estimat Glomerular Filtration Rate 121 ML/MIN Lipase 184 U/L Clue Cells (Wet Prep) PRESENT Vaginal Trichomonas (Wet Prep) NONE SEEN Vaginal Yeast (Wet Prep) NONE SEEN Chlamydia trachomatis DNA (PCR) NOT DETECTED Neisseria gonorrhoeae DNA (PCR) NOT DETECTED MDM Medical Decision Making Medical Screen Exam Complete: Yes Emergency Medical Condition: Yes Medical Record Reviewed: Yes Interpretation(s) [id number] hCG: Negative Last Impressions Abdomen/Pelvis CT 10/14/17 0000 Signed Impressions: Service Date/Time: Saturday, October 14, 2017 06:43 - CONCLUSION: 1. Enlarged uterus with suspected large myometrial mass characteristic of a leiomyoma. 2. Mildly prominent appendix without evidence of active inflammatory change. 3. No other significant abnormality. Piter Rhodes MD CBC & BMP Diagram 10/14/17 05:48 Total Protein 8.1, Albumin 3.9, Calcium Level 9.1, Alkaline Phosphatase 95, Aspartate Amino Transf (AST/SGOT) 14 L, Alanine Aminotransferase (ALT/SGPT) 22, Total Bilirubin 0.3 Vital Signs Date Time Temp Pulse Resp B/P (MAP) Pulse Ox O2 Delivery O2 Flow Rate FiO2 10/14/17 07:43 69 15 140/76 (97) 100 Room Air 10/14/17 06:05 62 146/93 (110) 99 Room Air 10/14/17 06:00 100 Room Air 10/14/17 04:29 97.5 82 24 146/82 (103) 100 Room Air Differential Diagnosis Pelvic pain, menses, endometriosis, ectopic , UTI, ruptured ovarian cyst, ovarian torsion unlikely, appendicitis unlikely, renal colic, PID Narrative Course After physical exam IV access obtained specimens collected and sent for resulting [id number] hCG is negative patient administered Zofran 4 mg IV Toradol 30 mg IV and morphine sulfate 2 mg IV with normal saline bolus; patient shuffles to ambulate to the bathroom with spouse assistance. Patient administered IV fluids resting comfortably taking sips of water No nausea no vomiting at this time pain is well controlled CT is pending Patient identified to have mild leukocytosis urinalysis shows innumerable white blood cells with minimal red blood cells urine identified to be clean catch with menses therefore additional urinalysis with many catheter ordered for clarification of urinalysis findings CT abdomen and pelvis now resulted and shows large uterine leiomyomata however also notes that appendix is mildly prominent at 7 mm with no periappendiceal inflammatory changes. Patient is reexamined and remains tender to palpation midline without reproducible right lower quadrant tenderness as midline tenderness causes increased discomfort on exam no left lower quadrant tenderness to palpation no guarding or rebound. Patient's CT discussed with on- call surgeon Dr. Mehta recommends observation to reassess patient's pain after pain medication wears off most likely pain is gynecologic in nature however in view of CT which she has reviewed recommend at least reevaluation. Patient reports minimal resources to return to the hospital and reports that pain is returning therefore general surgery recommends observation to medicine service with consult to Dr. Mehta as he has had the opportunity to review her CT and will be happy to see her in consultation to determine if surgical intervention is necessary. Call placed to [facility] service. Physician Communication Physician Communication discussed with general surgery Dr Mehta --obs w/ GS consult to him; call placed to [facility] service Diagnosis Primary Impression: Acute pelvic pain, female Admitting Information Admitting Physician Requests: Observation Keily Santo MD Oct 14, 2017 06:09
[2017-10-14 06:15] LABS: BLOOD, URINE LARGE (NEG); GLUCOSE,URINE NEG (NEG); KETONE, URINE TRACE mg/dL (NEG); MUCUS URINE FEW /lpf (OCC); NITRITE,URINE NEG (NEG)
[2017-10-14 06:16] LABS: COMMENT (UR) CULTURE INDICATED; CULTURE IF INDICATED CULTURE INDICATED; URINE COLOR RED (YELLW/STRAW)
[2017-10-14 06:29] LABS: AUTOMATED NEUTROPHIL # 8.2 TH/MM3 (1.8-7.7); BASOPHIL # 0.1 TH/MM3 (0-0.2); BASOPHIL % 0.9 % (0.0-2.0); EOSINOPHIL # 0.6 TH/MM3 (0-0.4); EOSINOPHIL % 4.8 % (0.0-4.0); HEMATOCRIT 38.3 % (35.0-46.0); HEMO FLAGS DIFF FINAL; LYMPH % 21.3 % (9.0-44.0); LYMPHOCYTE # 2.7 TH/MM3 (1.0-4.8); MEAN CELL VOLUME 83.5 FL (80.0-100.0); MEAN CORPUSCULAR HGB CONC 34.8 % (32.0-36.0); MONO % 8.6 % (0.0-8.0); NEUT % 64.4 % (16.0-70.0); PLATELET COUNT 485 TH/MM3 (150-450); RED BLOOD COUNT 4.59 MIL/MM3 (4.00-5.30); RED CELL DISTRIBUTION WIDTH 14.3 % (11.6-17.2); WHITE BLOOD COUNT 12.7 TH/MM3 (4.0-11.0)
[2017-10-14 06:30] LABS: ANION GAP 12 MEQ/L (5-15); AST (GOT) 14 U/L (15-37); BICARBONATE 20.1 MEQ/L (21.0-32.0); BLOOD UREA NITROGEN 15 MG/DL (7-18); CHLORIDE 105 MEQ/L (98-107); GLOMERULAR FILTRATION RATE 121 ML/MIN (>89); POTASSIUM 3.9 MEQ/L (3.5-5.1); SODIUM (NA) 137 MEQ/L (136-145)
[2017-10-14] MEDS ORDERED: AZITHROMYCIN PWD FOR SUSP 1 GM PACKET PO ONE (06:30)
[2017-10-14] MEDS ORDERED: cefTRIAXone INJ 1,000 MG in SODIUM CHLORIDE 0.9% INJ 100 ML IV ONE (06:30)
[2017-10-14] MEDS ORDERED: IOHEXOL 350 MG/ML 10 ML VIAL (for RAD DIAG) IVCONTRAST ONE (06:43)
[2017-10-14 06:45] LABS: ALKALINE PHOSPHATASE 95 U/L (45-117); ALT (GPT) 22 U/L (10-53); TOTAL BILIRUBIN ADULT 0.3 MG/DL (0.2-1.0)
[2017-10-14] MEDS ORDERED: metroNIDAZOLE 500 MG INJ 100 ML IV ONE (07:00)
--- NOTE | 2017-10-14 07:05 | RADRPT ---
EXAM DATE/TIME: 10/14/2017 06:43 [place] COMPARISON: No previous studies available for comparison. INDICATIONS : Lower quadrant and lower back pain. IV CONTRAST: 97 cc Omnipaque 350 (iohexol) IV ORAL CONTRAST: No oral contrast ingested. RADIATION DOSE: 9.05 CTDIvol (mGy) MEDICAL HISTORY : Uterine fibroids. SURGICAL HISTORY : None. ENCOUNTER: Initial ACUITY: 1 day PAIN SCALE: 10/10 LOCATION: Bilateral lower quadrant TECHNIQUE: Volumetric scanning of the abdomen and pelvis was performed. Using automated exposure control and ad justment of the mA and/or kV according to patient size, radiation dose was kept as low as reasonably achievable to obtain optimal diagnostic quality images. DICOM format image data is available electro nically for review and comparison. FINDINGS: LOWER LUNGS: The visualized lower lungs are clear. LIVER: Homogeneous density without lesion. There is no dilation of the biliary tree. No calcified gallston es. SPLEEN: Normal size without lesion. PANCREAS: Within normal limits. KIDNEYS: Normal in size and shape. There is no mass, stone or hydronephrosis. ADRENAL GLANDS: Within normal limits. VASCULAR: There is no aortic aneurysm. BOWEL/MESENTERY: The stomach, small bowel, and colon demonstrate no acute abnormality. There is no free intraperitone al air or fluid. The appendix measures 7 mm in diameter but is otherwise unremarkable. There is no ev idence of periappendiceal inflammation. ABDOMINAL WALL: Within normal limits. RETROPERITONEUM: There is no lymphadenopathy. BLADDER: No wall thickening or mass. REPRODUCTIVE: The uterus is enlarged measuring 14 x 7.7 x 9.1 cm in size. There appears to be a large myometrial ma ss. INGUINAL: There is no lymphadenopathy or hernia. MUSCULOSKELETAL: Within normal limits for patient age. CONCLUSION: 1. Enlarged uterus with suspected large myometrial mass characteristic of a leiomyoma. 2. Mildly prominent appendix without evidence of active inflammatory change. 3. No other significant abnormality. Piter Rhodes MD on October 14, 2017 at 6:58 Board Certified Radiologist. This report was verified electronically.
[2017-10-14 07:40] LABS: CHLAMYDIA PCR NOT DETECTED (NOT DETECT); NEISSERIA PCR NOT DETECTED (NOT DETECT)
[2017-10-14 09:18] LABS: BLOOD, URINE TRACE (NEG); GLUCOSE,URINE NEG (NEG); KETONE, URINE NEG (NEG); MUCUS URINE FEW /lpf (OCC); NITRITE,URINE NEG (NEG); PH, URINE 5.5 (5.0-8.5); SQUAMOUS EPITHELIAL CELL URINE 1 /hpf (0-5); URINE COLOR LIGHT-YELLOW (YELLW/STRAW)
[2017-10-14 09:21] LABS: COMMENT (UR) CATH-CULT NOT IND; CULTURE IF INDICATED CATH CULTURE NOT IND
[2017-10-14] MEDS ORDERED: NALOXONE HCL 0.4 MG/ML AMP IV PUSH PRN (11:15)
[2017-10-14] MEDS ORDERED: ONDANSETRON HCL 4 MG/2 ML VIAL IVP PRN (11:15)
[2017-10-14] MEDS ORDERED: MAGNESIUM HYDROXIDE SUSP 30 ML CUP PO PRN (11:15)
[2017-10-14] MEDS ORDERED: BISACODYL 10 MG SUPP RECTAL PRN (11:15)
[2017-10-14] MEDS ORDERED: LACTULOSE SYRUP 20 GM/30 ML CUP PO PRN (11:15)
[2017-10-14] MEDS ORDERED: SENNOSIDES 8.6 MG TAB PO PRN (11:15)
--- NOTE | 2017-10-14 11:43 | HHI.HP ---
HPI Service [facility] Hospitalists Primary Care Physician No Primary Care Physician Admission Diagnosis pelvic pain, leukocytosis; leimyomata Diagnoses: Chief Complaint: Abdominal pain Travel History International Travel<30 Days: No Contact w/Intl Traveler <30 Da: No Traveled to Known Affected Are: No History of Present Illness This is a 37-year-old female with past medical history of uterine fibroids who presents to [facility] complaining of sudden onset abdominal pain, localized in the lower abdomen radiating to the back. The patient states that the pain started 1 day prior to presentation to the hospital and was associated with the start of her menstruation. The patient states that she has had similar pain with her menstruation before, however this one is more painful than previous times. The patient otherwise denies loss of appetite, fevers, chills, dysuria, diarrhea, dizziness. The patient also denies chest pain or shortness of breath. The patient was seen in emergency department and a CT of the abdomen and pelvis was obtained which showed an enlarged uterus with suspected large myometrial mass factors stick of leiomyoma. There was also described mildly prominent appendix without evidence of active inflammatory change. The patient states that her menstruations are usually regular and last 4-5 days with episodes of heavy bleeding which she uses 4-6 foramina and pelvis that day. Review of Systems As per history of present illness, other systems were reviewed by me and negative. Past Family Social History Past Medical History Uterine fibroids Past Surgical History Denies Reported Medications Reported Meds & Active Scripts Active Senna Plus 8.6-50 mg (Sennosides-Docusate Sodium) 1 Tab Tab 2 Tab PO Q12H PRN Ibuprofen 600 Mg Tab 600 Mg PO Q6H PRN Reported Plus 27-1 mg ( Vit W/ Ferrous Fumara) 1 Tab Tab Allergies: Coded Allergies: No Known Allergies (Unverified , 03/06/17) Active Ordered Medications Current Medications Medications (Trade) Dose Ordered Sig/Karolyn Route Start Time Stop Time Status Last Admin (Flu (Quadrivalent) Vaccine Inj) 0.5 ml ONCE ONCE IM 10/15/17 10:00 10/15/17 10:01 Sodium Chloride 1,000 ml @ 75 mls/hr [id number] IV 10/14/17 12:00 (NS Flush) 2 ml UNSCH PRN IV FLUSH 10/14/17 11:15 (NS Flush) 2 ml BID IV FLUSH 10/14/17 21:00 (Zofran Inj) 4 mg Q6H PRN IVP 10/14/17 11:15 (Narcan Inj) 0.4 mg UNSCH PRN IV PUSH 10/14/17 11:15 (Roslyn-Colace) 1 tab BID PO 10/14/17 21:00 (Milk Of Magnesia Liq) 30 ml Q12H PRN PO 10/14/17 11:15 (Senokot) 17.2 mg Q12H PRN PO 10/14/17 11:15 (Dulcolax Supp) 10 mg DAILY PRN RECTAL 10/14/17 11:15 (Lactulose Liq) 30 ml DAILY PRN PO 10/14/17 11:15 Family History Denies family history of uterine fibroids, uterine cancer and bleeding diathesis. Social History Denies tobacco, alcohol or drug use. Physical Exam Vital Signs Vital Signs Date Time Temp Pulse Resp B/P (MAP) Pulse Ox O2 Delivery O2 Flow Rate FiO2 10/14/17 10:27 97.7 70 22 103/69 (80) 99 10/14/17 09:47 10/14/17 07:43 69 15 140/76 (97) 100 Room Air 10/14/17 06:05 62 146/93 (110) 99 Room Air 10/14/17 06:00 100 Room Air 10/14/17 04:29 97.5 82 24 146/82 (103) 100 Room Air Physical Exam GENERAL: This is a well-nourished, well-developed patient, in no apparent distress. SKIN: No rashes, ecchymoses or lesions. Cool and dry. HEAD: Atraumatic. Normocephalic. No temporal or scalp tenderness. EYES: Pupils equal round and reactive. Extraocular motions intact. No scleral icterus. No injection or drainage. ENT: Nose without bleeding, purulent drainage or septal hematoma. Throat without erythema, tonsillar hypertrophy or exudate. Uvula midline. Airway patent. NECK: Trachea midline. No JVD or lymphadenopathy. Supple, nontender, no meningeal signs. CARDIOVASCULAR: Regular rate and rhythm without murmurs, gallops, or rubs. RESPIRATORY: Clear to auscultation. Breath sounds equal bilaterally. No wheezes , rales, or rhonchi. GASTROINTESTINAL: Abdomen soft, tender to palpation of hypogastric region, nondistended. No hepato-splenomegaly, or palpable masses. No guarding. Bowel sounds present. MUSCULOSKELETAL: Extremities without clubbing, cyanosis, or edema. No joint tenderness, effusion, or edema noted. No calf tenderness. Negative Homans sign bilaterally. NEUROLOGICAL: Awake and alert. Cranial nerves II through XII intact. Motor and sensory grossly within normal limits. Five out of 5 muscle strength in all muscle groups. Normal speech. Laboratory Laboratory Tests Test 10/14/17 05:40 10/14/17 05:48 10/14/17 05:55 10/14/17 08:00 Urine Color RED LIGHT-YELLOW Urine Turbidity HAZY CLEAR Urine pH 6.0 5.5 Urine Specific [place] 1.025 GREATER THAN 1.050 Urine Protein 30 TRACE Urine Glucose (UA) NEG NEG Urine Ketones TRACE NEG Urine Occult Blood LARGE TRACE Urine Nitrite NEG NEG Urine Bilirubin NEG NEG Urine Urobilinogen LESS THAN 2.0 LESS THAN 2.0 Urine Leukocyte Esterase MOD NEG Urine RBC LESS THAN 1 Urine WBC LESS THAN 1 Urine Mucus FEW FEW Microscopic Urinalysis Comment CULTURE INDICATED CATH-CULT NOT IND White Blood Count 12.7 Red Blood Count 4.59 Hemoglobin 13.3 Hematocrit 38.3 Mean Corpuscular Volume 83.5 Mean Corpuscular Hemoglobin 29.0 Mean Corpuscular Hemoglobin Concent 34.8 Red Cell Distribution Width 14.3 Platelet Count 485 Mean Platelet Volume 8.9 Neutrophils (%) (Auto) 64.4 Lymphocytes (%) (Auto) 21.3 Monocytes (%) (Auto) 8.6 Eosinophils (%) (Auto) 4.8 Basophils (%) (Auto) 0.9 Neutrophils # (Auto) 8.2 Lymphocytes # (Auto) 2.7 Monocytes # (Auto) 1.1 Eosinophils # (Auto) 0.6 Basophils # (Auto) 0.1 CBC Comment DIFF FINAL Differential Comment Blood Urea Nitrogen 15 Creatinine 0.66 Random Glucose 89 Total Protein 8.1 Albumin 3.9 Calcium Level 9.1 Alkaline Phosphatase 95 Aspartate Amino Transf (AST/SGOT) 14 Alanine Aminotransferase (ALT/SGPT) 22 Total Bilirubin 0.3 Sodium Level 137 Potassium Level 3.9 Chloride Level 105 Carbon Dioxide Level 20.1 Anion Gap 12 Estimat Glomerular Filtration Rate 121 Lipase 184 Clue Cells (Wet Prep) PRESENT Vaginal Trichomonas (Wet Prep) NONE SEEN Vaginal Yeast (Wet Prep) NONE SEEN Chlamydia trachomatis DNA (PCR) NOT DETECTED Neisseria gonorrhoeae DNA (PCR) NOT DETECTED Urine Squamous Epithelial Cells 1 Date/Time Source Procedure Growth Status 10/14/17 05:40 Urine Clean Catch Urine Culture Pending Received Result Diagram: 10/14/17 0548 10/14/17 0548 Imaging Last Impressions Abdomen/Pelvis CT 10/14/17 0000 Signed Impressions: Service Date/Time: Saturday, October 14, 2017 06:43 - CONCLUSION: 1. Enlarged uterus with suspected large myometrial mass characteristic of a leiomyoma. 2. Mildly prominent appendix without evidence of active inflammatory change. 3. No other significant abnormality. Piter Rhodes MD Reviewed personally by me. Caprini VTE Risk Assessment Caprini VTE Risk Assessment: No/Low Risk (score <= 1) VTE Pharm Contraindication: Hemorrhage Caprini Risk Assessment Model Point Value = 1 Point Value = 2 Point Value = 3 Point Value = 5 Age 41-60 Minor surgery BMI > 25 kg/m2 Swollen legs Varicose veins or History of unexplained or recurrent spontaneous Oral contraceptives or hormone replacement Sepsis (< 1 month) Serious lung disease, including pneumonia (< 1 month) Abnormal pulmonary function Acute myocardial infarction Congestive heart failure (< 1 month) History of inflammatory bowel disease Medical patient at bed rest Age 61-74 Arthroscopic surgery Major open surgery (> 45 min) Laparoscopic surgery (> 45 min) Malignancy Confined to bed (> 72 hours) Immobilizing plaster cast Central venous access Age >= 75 History of VTE Family history of VTE Factor V Leiden Prothrombin [id number] Lupus anticoagulant Anticardiolipin antibodies Elevated serum homocysteine Heparin-induced thrombocytopenia Other congenital or acquired thrombophilia Stroke (< 1 month) Elective arthroplasty Hip, pelvis, or leg fracture Acute spinal cord injury (< 1 month) Prophylaxis Regimen Total Risk Factor Score Risk Level Prophylaxis Regimen 0-1 Low Early ambulation 2 Moderate Order ONE of the following: *Sequential Compression Device (SCD) *Heparin 5000 units SQ BID 3-4 Higher Order ONE of the following medications: *Heparin 5000 units SQ TID *Enoxaparin/Lovenox 40 mg SQ daily (WT < 150 kg, CrCl > 30 mL/min) *Enoxaparin/Lovenox 30 mg SQ daily (WT < 150 kg, CrCl > 10-29 mL/min) *Enoxaparin/Lovenox 30 mg SQ BID (WT < 150 kg, CrCl > 30 mL/min) AND/OR *Sequential Compression Device (SCD) 5 or more Highest Order ONE of the following medications: *Heparin 5000 units SQ TID (Preferred with Epidurals) *Enoxaparin/Lovenox 40 mg SQ daily (WT < 150 kg, CrCl > 30 mL/min) *Enoxaparin/Lovenox 30 mg SQ daily (WT < 150 kg, CrCl > 10-29 mL/min) *Enoxaparin/Lovenox 30 mg SQ BID (WT < 150 kg, CrCl > 30 mL/min) AND *Sequential Compression Device (SCD) Assessment and Plan Problem List: (1) Abdominal pain ICD Code: R10.9 - Unspecified abdominal pain (2) Leiomyoma ICD Code: D21.9 - Benign neoplasm of connective and other soft tissue, unspecified Assessment and Plan At this point I doubt the patient's abdominal pain is related to appendicitis. CT abdomen and pelvis as described above. UA negative. 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 However WBC slightly elevated which could be likely reactive to pain. The case was discussed with Dr. Mehta from surgery and it was agreed to monitor the patient overnight and repeat a CBC in the morning. Placed the patient on observation, place on IV fluids, regular diet 1 dose of IV Rocephin, Flagyl and azithromycin to treat suspected PID was given in the ED. I will not start the patient on IV antibiotics. Consult LACE MENDER Monitor with serial abdominal exams and continue pain control with oral Toradol. SCD's for DVt prophylaxis and no chemoprophylaxis indicated since patient has her menstrual bleeding in patients with leiomyoma are at risk for prolonged bleeding. Code Status Full code Discussed Condition With ED physician, Dr. Mehta, RN, patient Art Meehan MD Oct 14, 2017 11:43
--- NOTE | 2017-10-14 12:06 | PD.CONS ---
HPI Service General surgery Consult Requested By Dr. Santo Reason for Consult abdominal pain, enlarged appendix Primary Care Physician No Primary Care Physician History of Present Illness 37 yo F with one day history of suprapubic abdominal pain associated with nausea. Menses started yesterday and she often gets this pain, but rarely this severe. She has h/o fibroids. She denies anorexia, fever, chills, vomiting. Physiologic vaginal discharge prior to onset of menses. WBC is 12. CT a/p shows fibroids, dilated appendix. Review of Systems Constitutional: DENIES: Fever, Chills Eyes: DENIES: Eye pain Respiratory: DENIES: Cough, Wheezing Cardiovascular: DENIES: Chest pain, Palpitations Gastrointestinal: COMPLAINS OF: Abdominal pain, Nausea Integumentary: DENIES: Pruritus, Rash Neurologic: DENIES: Paresthesias, Seizures Past Family Social History Past Medical History Fibroid uterus Past Surgical History None Reported Medications Reported Meds & Active Scripts Active Senna Plus 8.6-50 mg (Sennosides-Docusate Sodium) 1 Tab Tab 2 Tab PO Q12H PRN Ibuprofen 600 Mg Tab 600 Mg PO Q6H PRN Reported Plus 27-1 mg ( Vit W/ Ferrous Fumara) 1 Tab Tab Allergies: Coded Allergies: No Known Allergies (Unverified , 03/06/17) Active Ordered Medications Current Medications Medications (Trade) Dose Ordered Sig/Karolyn Route Start Time Stop Time Status Last Admin (Flu (Quadrivalent) Vaccine Inj) 0.5 ml ONCE ONCE IM 10/15/17 10:00 10/15/17 10:01 Sodium Chloride 1,000 ml @ 75 mls/hr [id number] IV 10/14/17 12:00 (NS Flush) 2 ml UNSCH PRN IV FLUSH 10/14/17 11:15 (NS Flush) 2 ml BID IV FLUSH 10/14/17 21:00 (Zofran Inj) 4 mg Q6H PRN IVP 10/14/17 11:15 (Narcan Inj) 0.4 mg UNSCH PRN IV PUSH 10/14/17 11:15 (Roslyn-Colace) 1 tab BID PO 10/14/17 21:00 (Milk Of Magnesia Liq) 30 ml Q12H PRN PO 10/14/17 11:15 (Senokot) 17.2 mg Q12H PRN PO 10/14/17 11:15 (Dulcolax Supp) 10 mg DAILY PRN RECTAL 10/14/17 11:15 (Lactulose Liq) 30 ml DAILY PRN PO 10/14/17 11:15 Family History Noncontributory Social History No ETOH, tobacco, or drug use. She is from [place]. Physical Exam Vital Signs Vital Signs Date Time Temp Pulse Resp B/P (MAP) Pulse Ox O2 Delivery O2 Flow Rate FiO2 10/14/17 10:27 97.7 70 22 103/69 (80) 99 10/14/17 09:47 10/14/17 07:43 69 15 140/76 (97) 100 Room Air 10/14/17 06:05 62 146/93 (110) 99 Room Air 10/14/17 06:00 100 Room Air 10/14/17 04:29 97.5 82 24 146/82 (103) 100 Room Air Physical Exam GENERAL: Awake and alert. No acute distress. Cooperative. Obese. HEAD: Normocephalic. Atraumatic. EYES: Pupils equal round and reactive to light bilaterally. No scleral icterus. CHEST: Nonlabored breathing. No respiratory distress. CARDIOVASCULAR: Regular rate and rhythm. ABDOMEN: Soft. no rebound or guarding. Moderate suprapubic ttp. No tenderness in RLQ. EXTREMITIES: No cyanosis or edema. SKIN: Warm, dry, nonjaundiced. Laboratory Laboratory Tests Test 10/14/17 05:40 10/14/17 05:48 10/14/17 05:55 10/14/17 08:00 Urine Color RED LIGHT-YELLOW Urine Turbidity HAZY CLEAR Urine pH 6.0 5.5 Urine Specific [place] 1.025 GREATER THAN 1.050 Urine Protein 30 TRACE Urine Glucose (UA) NEG NEG Urine Ketones TRACE NEG Urine Occult Blood LARGE TRACE Urine Nitrite NEG NEG Urine Bilirubin NEG NEG Urine Urobilinogen LESS THAN 2.0 LESS THAN 2.0 Urine Leukocyte Esterase MOD NEG Urine RBC LESS THAN 1 Urine WBC LESS THAN 1 Urine Mucus FEW FEW Microscopic Urinalysis Comment CULTURE INDICATED CATH-CULT NOT IND White Blood Count 12.7 Red Blood Count 4.59 Hemoglobin 13.3 Hematocrit 38.3 Mean Corpuscular Volume 83.5 Mean Corpuscular Hemoglobin 29.0 Mean Corpuscular Hemoglobin Concent 34.8 Red Cell Distribution Width 14.3 Platelet Count 485 Mean Platelet Volume 8.9 Neutrophils (%) (Auto) 64.4 Lymphocytes (%) (Auto) 21.3 Monocytes (%) (Auto) 8.6 Eosinophils (%) (Auto) 4.8 Basophils (%) (Auto) 0.9 Neutrophils # (Auto) 8.2 Lymphocytes # (Auto) 2.7 Monocytes # (Auto) 1.1 Eosinophils # (Auto) 0.6 Basophils # (Auto) 0.1 CBC Comment DIFF FINAL Differential Comment Blood Urea Nitrogen 15 Creatinine 0.66 Random Glucose 89 Total Protein 8.1 Albumin 3.9 Calcium Level 9.1 Alkaline Phosphatase 95 Aspartate Amino Transf (AST/SGOT) 14 Alanine Aminotransferase (ALT/SGPT) 22 Total Bilirubin 0.3 Sodium Level 137 Potassium Level 3.9 Chloride Level 105 Carbon Dioxide Level 20.1 Anion Gap 12 Estimat Glomerular Filtration Rate 121 Lipase 184 Clue Cells (Wet Prep) PRESENT Vaginal Trichomonas (Wet Prep) NONE SEEN Vaginal Yeast (Wet Prep) NONE SEEN Chlamydia trachomatis DNA (PCR) NOT DETECTED Neisseria gonorrhoeae DNA (PCR) NOT DETECTED Urine Squamous Epithelial Cells 1 Date/Time Source Procedure Growth Status 10/14/17 05:40 Urine Clean Catch Urine Culture Pending Received Result Diagram: 10/14/17 0548 10/14/17 0548 Imaging Last Impressions Abdomen/Pelvis CT 10/14/17 0000 Signed Impressions: Service Date/Time: Saturday, October 14, 2017 06:43 - CONCLUSION: 1. Enlarged uterus with suspected large myometrial mass characteristic of a leiomyoma. 2. Mildly prominent appendix without evidence of active inflammatory change. 3. No other significant abnormality. Ptier Rhodes MD Assessment and Plan Assessment and Plan 37 yo F with suprapubic abdominal pain, leukocytosis, dilated appendix. H/o pain with menses. I think this is unlikely to be appendicitis. Would recommend not to treat with antibiotics at this time. Recheck clinical exam and CBC in am. Vasyl Mehta MD Oct 14, 2017 12:06
[2017-10-14] MEDS ORDERED: MORPHINE SULFATE 2 MG/ML INJ IM PRN (12:15)
[2017-10-14] MEDS ORDERED: traMADol HCL 50 MG TAB PO PRN (12:15)
[2017-10-14] MEDS: SODIUM CHLOR 0.45% 1000 ML INJ 1,000 ML IV SCH (12:55)
[2017-10-14] MEDS ORDERED: MORPHINE SULFATE 2 MG/ML INJ IV PRN (16:15)
--- NOTE | 2017-10-14 19:06 | EKG ---
Date Performed: 10/14/2017 Time Performed: 11:30:43 PTAGE: 37 years EKG: Sinus rhythm NORMAL ECG NO PREVIOUS TRACING DOCTOR: Jorden Araya Interpretating Date/Time 10/14/2017 19:05:08
--- NOTE | 2017-10-14 20:33 | PD.CONS ---
History & Physical H&P Patient is a 37-year-old black female para 3 with history of lower abdominal pain H month when she has her period. She has heavy periods with clots and increasing pain. She is tried pills and Depo-Provera all of which caused her to gain weight she wouldn't tolerate them long-term her period started yesterday and of course she had cramping pain prior to that and then with the onset of period pain worsened, and her workup her ultrasound shows an enlarged uterus 14 x 11 x 9 consistent with leiomyoma. On exam the uterus is slightly enlarged 12-14 week size and 2+ tender no adnexal masses noted, wet prep positive for bacterial vaginosis Impressions myomatous uterus with increasing period pain and menorrhagia Bacterial vaginosis noted on slide Plan would be to treat bacterial l vaginosis with by mouth Flagyl heavy periods can be treated with tranexemic [id number] mg bid Recommend she follow up with of local POSITIVE PRINTER OPERATOR doctor in the community for evaluation and possible therapy that could include Mirena IUD versus endometrial ablation of or more definitive procedures Abdelrahman Dye II, MD Oct 14, 2017 20:33
[2017-10-14] MEDS ORDERED: DOCUSATE SODIUM 50 MG/SENNA 8.6 MG TAB PO SCH (21:00)
[2017-10-14] MEDS ORDERED: SODIUM CHLORIDE 0.9% FLUSH 10 ML FLUSH IV FLUSH SCH (21:00)
[2017-10-14] MEDS ORDERED: DOXYCYCLINE HYCLATE 100 MG CAP PO SCH (21:00)
[2017-10-14] MEDS ORDERED: TRANEXAMIC ACID 650 MG TAB PO SCH (22:00)
[2017-10-14] MEDS ORDERED: metroNIDAZOLE 250 MG TAB PO SCH (22:00)
[2017-10-15] MEDS: SODIUM CHLOR 0.45% 1000 ML INJ 1,000 ML IV SCH (01:10)
[2017-10-15] MEDS ORDERED: INFLUENZA VIRUS VACCINE (QUADRIVALENT) 0.5 ML SYR IM ONE (10:00)
== END 2017-10-15 04:18 | disposition left against medical advice (07) ==
LOC: NEPC 04:26 → NEDA 08:42 → NEPFCDU 09:53
PROVIDERS: ADMIT Hospitalist; ATTEND Hospitalist
DX: R10.2 Pelvic and perineal pain (principal); D25.9 Leiomyoma of uterus, unspecified; R11.0 Nausea; N89.8 Other specified noninflammatory disorders of vagina; Z01.810 Encounter for preprocedural cardiovascular examination
CPT/HCPCS: 74177; 80053; 81001; 83690; 84703; 85025; 87086; 87210; 87491; 87591; 93005; 96361; 96365; 96366; 96375; 96376; 99285; G0378; J0696; J1885; J2270; J2405; P9612; Q9967